=== PATIENT | male | born 1980 | race Caucasian/White ===

== ENCOUNTER 2020-04-17 09:20 | Emergency (ER) | payer SELFPAY ==
[~2020-04-17] VITALS: Ht 175.3 cm; Wt 90.7 kg
--- NOTE | 2020-04-17 09:20 | NUR ---
PT BIB SELF C/O BRIGHT RED STOOL STARTED THIS WEEK ON AND OF PER PT. PT IS AAOX4, NOT IN RESPIRATORY DISTRESS, HOOKED TO INSTALLATION ENGINEER, KEPT RESTED AND COMFORTABLE. WILL CONTINUE TO MONITOR.
--- NOTE | 2020-04-17 09:31 | NUR ---
SEEN AND EXAMINED BY .
--- NOTE | 2020-04-17 09:35 | NUR ---
IV LINE ESTABLISHED BLOOD DRAWN AND SENT TO LAB.
--- NOTE | 2020-04-17 09:43 | NUR ---
FECAL OCCULT BLOOD SPECIMEN OBTAINED BY DR. FUCHS AND SENT TO LAB.
[2020-04-17] MEDS ORDERED: HYDR30CR79 TP (09:52)
[2020-04-17 09:59] LABS: BASOPHILS % (AUTO) 0.7 % (0.0-2.0); EOSINOPHILS % (AUTO) 3.2 % (0.0-6.0); HEMATOCRIT 47 % (39-51); HEMOGLOBIN 16.3 g/dL (13.5-17.5); LYMPHOCYTES # (AUTO) 1.2 /CMM (0.8-4.8); LYMPHOCYTES % (AUTO) 22.8 % (20.0-44.0); MEAN CORPUSCULAR HGB CONC 35 g/dl (31.0-36.0); MEAN CORPUSCULAR VOLUME 87 fL (80-96); MONOCYTES # (AUTO) 0.5 /CMM (0.1-1.30); MONOCYTES % (AUTO) 10.2 % (2.0-12.0); NEUTROPHILS # (AUTO) 3.3 /CMM (1.8-8.9); NEUTROPHILS % (AUTO) 63.1 % (43.0-81.0); PLATELET COUNT (AUTO) 281 /CMM (150-450); RED BLOOD CELL COUNT(AUTO) 5.38 MIL/uL (4.5-6.0); WHITE BLOOD COUNT (AUTO) 5.3 K/uL (4.3-11.0)
[2020-04-17 10:07] LABS: OCCULT BLOOD STOOL NEGATIVE (NEGATIVE)
[2020-04-17 10:09] LABS: ALBUMIN 4.4 g/dL (3.4-5.0); BILIRUBIN,DIRECT 0.1 mg/dL (0.0-0.2); BILIRUBIN,TOTAL 0.6 mg/dL (0.2-1.0); CALCIUM, SERUM 9.3 mg/dL (8.5-10.1); CREATININE 0.9 mg/dL (0.6-1.3); POTASSIUM 4.1 mmol/L (3.5-5.1); TOTAL PROTEIN, SERUM 8.4 g/dL (6.4-8.2)
--- NOTE | 2020-04-17 10:20 | NUR ---
IV removed. Catheter intact and site benign. Pressure and 4x4 applied to site. No bleeding noted. Patient discharged to home in stable condition. Written and verbal after care instructions given. Patient verbalizes understanding of instruction.
[2020-04-17 10:21] VITALS: BP 137/94
== END 2020-04-17 10:21 | disposition home or self-care (01) ==
LOC: EDSEX 09:24 → ER 09:24
DX: K62.5 Hemorrhage of anus and rectum (principal)
CPT/HCPCS: 36415; 80048-TC; 80076-TC; 82272-TC; 83690-TC; 85025-TC